=== PATIENT | male | born 1955 | race Caucasian/White ===

== ENCOUNTER 2022-07-26 10:09 | Outpatient (CLI) | payer MEDICARE ==
[2022-07-26 14:21] LABS: BASOPHILS % (AUTO) 0.9 %; EOSINOPHILS # (AUTO) 0.3 10^3/uL (0.0-0.7); EOSINOPHILS % (AUTO) 6.1 %; HCT - HEMATOCRIT 44.4 % (42.0-52.0); HGB - HEMOGLOBIN 14.8 g/dL (14.0-18.0); LYMPHOCYTES # (AUTO) 1.4 10^3/uL (1.5-3.5); LYMPHOCYTES % (AUTO) 31.8 %; MEAN CORPUSCULAR HEMOGLOBIN 32.6 pg (27.0-31.0); MEAN CORPUSCULAR HGB CONC 33.3 g/dL (32.0-36.0); MEAN CORPUSCULAR VOLUME 97.8 fL (80.0-94.0); MEAN PLATELET VOLUME 9.6 fL (7.4-11.4); MONOCYTES # (AUTO) 0.5 10^3/uL (0.0-1.0); MONOCYTES % (AUTO) 10.8 %; NEUTROPHILS # (AUTO) 2.3 10^3/uL (1.5-6.6); NEUTROPHILS % (AUTO) 50.4 %; PLT - PLATELET COUNT 145 10^3/uL (130-450); RED BLOOD COUNT 4.54 10^6/uL (4.70-6.10); RED CELL DISTRIBUTION WIDTH 13.1 % (12.0-15.0); WHITE BLOOD COUNT 4.5 x10^3/uL (4.8-10.8)
[2022-07-26 14:51] LABS: THYROID STIMULATING HORMONE 3.16 uIU/mL (0.34-5.60)
[2022-07-26 15:19] LABS: BUN - BLOOD UREA NITROGEN 22 mg/dL (6-20); CALCIUM 9.1 mg/dL (8.5-10.3); CARBON DIOXIDE - CO2 29 mmol/L (21-32); CHLORIDE 103 mmol/L (101-111); CHOL/HDL RATIO 2.7 (<5.0); CHOLESTEROL 229 mg/dL; CREATININE 1.4 mg/dL (0.6-1.2); GFR - MDRD 51 (>89); GLUCOSE 105 mg/dL (70-100); HDL CHOLESTEROL 86 mg/dL; LDL CHOLESTEROL,CALCULATED 134 mg/dL; LDL/HDL RATIO 1.6 (<3.6); POTASSIUM 4.3 mmol/L (3.5-5.0); SODIUM 138 mmol/L (135-145); TRIGLYCERIDES 45 mg/dL; VLDL CHOLESTEROL 9 mg/dL
[2022-07-26 20:09] LABS: ESTIMATED AVERAGE GLUCOSE 100 mg/dL (70-100); HEMOGLOBIN A1c% 5.1 % (4.27-6.07)
[2022-07-27 07:10] LABS: HCV AB <0.1 s/co ratio (0.0-0.9)
== END 2022-07-26 10:10 | disposition home or self-care (01) ==
LOC: LAB.S 10:09
PROVIDERS: ATTEND Internal Medicine
DX: I48.91 Unspecified atrial fibrillation (principal); R07.9 Chest pain, unspecified; E55.9 Vitamin D deficiency, unspecified; Z13.1 Encounter for screening for diabetes mellitus; Z13.220 Encounter for screening for lipoid disorders; Z11.59 Encounter for screening for other viral diseases; R06.02 Shortness of breath
CPT/HCPCS: 36415; 80048; 80061; 83036; 83721; 84443; 85025; 86803

== ENCOUNTER 2022-07-26 13:47 | Outpatient (CLI) | payer MEDICARE | END 2022-07-26 13:48 | disposition home or self-care (01) | LOC: RT 13:47 | PROVIDERS: ATTEND Internal Medicine Cardiovascular Disease | DX: R07.89 Other chest pain (principal) | CPT/HCPCS: 93005 ==

== ENCOUNTER 2022-10-16 11:18 | Outpatient (CLI) | payer MEDICARE ==
--- NOTE | 2022-10-16 14:23 | XRAY Report ---
PROCEDURE: Chest 2 View X-Ray INDICATIONS: SHORTNESS OF BREATH TECHNIQUE: 2 views of the chest were acquired. COMPARISON: None. FINDINGS: Surgical changes and devices: None. Lungs and pleura: Lung volumes are low. Moderate vasculature appears congested. Prominence of the pu lmonary interstitium and mild bibasilar pulmonary opacities present. Possible trace bilateral pleural effusions. No pneumothorax. Mediastinum: Cardiac silhouette is enlarged. Bones and chest wall: No suspicious bony lesions. Overlying soft tissues appear unremarkable. IMPRESSION: Findings compatible with mild fluid overload/CHF, appearance possibly accentuated by low lung volumes . Underlying infection difficult to exclude. Reviewed by: Lamonte Velez MD on 10/16/2022 2:22 PM PDT Approved by: Lamonte Velez MD on 10/16/2022 2:22 PM PDT Station ID: [id number]
== END 2022-10-16 11:19 | disposition home or self-care (01) ==
LOC: DI 11:18
PROVIDERS: ATTEND Internal Medicine
DX: R06.02 Shortness of breath (principal)

== ENCOUNTER 2022-11-01 16:13 | Outpatient (CLI) | payer MEDICARE ==
[2022-11-01] MEDS ORDERED: ALBUTEROL 1 PUFF INH STA (18:12)
== END 2022-11-01 16:14 | disposition home or self-care (01) ==
LOC: RT 16:13
PROVIDERS: ATTEND Internal Medicine
DX: R06.00 Dyspnea, unspecified (principal)
CPT/HCPCS: 94060

== ENCOUNTER 2022-11-24 07:56 | Outpatient (CLI) | payer MEDICARE | END 2022-11-24 07:57 | disposition EMS.NT | LOC: EMS 07:56 | DX: R04.0 Epistaxis (principal); Z79.02 Long term (current) use of antithrombotics/antiplatelets ==

== ENCOUNTER 2022-11-24 09:27 | Outpatient (CLI) | payer MEDICARE | END 2022-11-24 09:28 | disposition critical access hospital (66) | LOC: EMS 09:27 | DX: R04.0 Epistaxis (principal); Z79.02 Long term (current) use of antithrombotics/antiplatelets | CPT/HCPCS: A0425; A0429 ==

== ENCOUNTER 2022-11-24 10:00 | Emergency (ER) | payer MEDICARE ==
[2022-11-24] MEDS ORDERED: OXYMETAZOLINE HCL 100 SPRAYS BOTTLE NAS STA (10:19)
[2022-11-24] MEDS ORDERED: TRANEXAMIC ACID 1,000 MG/10 ML VIAL NAS STA (11:18)
--- NOTE | 2022-11-24 12:06 | ED Physician Documentation ---
PD HPI HEENT - Stated complaint Stated Complaint: NOSE BLEED - Chief complaint Chief Complaint: Heent - History obtained from History obtained from: Patient, Family - History of Present Illness Timing - onset: Enter time (0700), Today Timing - duration: Hours Timing - details: Abrupt onset, Still present Location: Nose Improves: Other (clamp) Worsens: Swalllowing Associated symptoms: No: Fever, Congestion, Rhinorrhea, Trismus, Unable to swal low, Swollen nodes, Facial swelling, Headache, Cough Similar symptoms before: Has not had sx before Recently seen: Not recently seen - Additional information Additional information: Previously well 67-year-old Juan Gonzalez awoke this morning at 0700 and developed a nosebleed to the left nares. He has had some bleeding bleeding through the right as well. He has been able to control the bleeding with direct pressure and comes to the emergency department by ambulance with a clamp in place. He did pull out a large clot from his nose this morning he continues to have blood dripping after removal of the clamp. He has not recently been ill. Review of Systems Constitutional: denies: Fever Eyes: denies: Decreased vision Ears: denies: Ear pain Nose: reports: Epistaxis. denies: Rhinorrhea / runny nose Throat: denies: Sore throat Respiratory: denies: Cough GI: denies: Vomiting, Diarrhea : denies: Dysuria PD PAST MEDICAL HISTORY - Past Medical History Past Medical History: Yes Cardiovascular: Hypertension : Other - Past Surgical History Past Surgical History: Yes Cardiovascular: Valve replacement, Other - Present Medications Home Medications: Ambulatory Orders Medication Instructions Recorded Confirmed Aspirin [Vazalore] 81 mg PO DAILY 11/24/22 11/24/22 Atorvastatin [Lipitor] 20 mg PO DAILY 11/24/22 11/24/22 Canagliflozin [Invokana] 100 mg PO DAILY 11/24/22 11/24/22 Clopidogrel [Plavix] 75 mg PO ONCE 11/24/22 11/24/22 Losartan Potassium 25 mg PO DAILY 11/24/22 11/24/22 Metoprolol Succinate [Toprol Xl] 25 mg PO ONCE 11/24/22 11/24/22 Spironolactone [Aldactone] 25 mg PO DAILY 11/24/22 11/24/22 Tamsulosin [Flomax] 1 cap PO DAILY 11/24/22 11/24/22 - Allergies Allergies/Adverse Reactions: Allergies Allergy/AdvReac Type Severity Reaction Status Date / Time No Known Drug Allergies Allergy Verified 11/24/22 10:09 - Social History Does the pt smoke?: No Smoking Status: Never smoker PD ED PE NORMAL - Vitals Vital signs reviewed: Yes (diastolic hypertension mild ) - General General: Alert and oriented X 3, No acute distress, Well developed/nourished - HEENT HEENT: Atraumatic, PERRL, EOMI, Other (blood from the left nares fills the nasal cavity. ) - Neck Neck: Supple, no meningeal sign, No bony TTP - Respiratory Respiratory: No respiratory distress - Derm Derm: Normal color, Warm and dry, No rash - Extremities Extremities: No deformity, No edema - Neuro Neuro: Alert and oriented X 3, crane hooker 2-12 intact, No motor deficit, No sensory deficit, Normal speech Eye Opening: Spontaneous Motor: Obeys Commands Verbal: Oriented GCS Score: 15 - Psych Psych: Normal mood, Normal affect Results - Vitals Vitals: Vital Signs - 24 hr 11/24/22 10:04 Temperature 36.7 C Heart Rate 80 Respiratory 20 Rate Blood Pressure 119/82 H O2 Saturation 100 Procedures - Epistaxis - Minor Site: Left, Anterior Preparation: Clots removed, Afrin, Clamp / pressure applied, Other (tranexemic acid) Treatment: Other (tranexemic acid, clamp, time. Bleeding resolved clot manually removed) Other: Observed - no bleeding, Pt tolerated well PD Medical Decision Making - ED course Complexity details: considered differential, d/w patient ED course: 67-year-old male with a anterior epistaxis to the left nares is administered oxymetazoline and clamped. He has improvement in his bleeding he does have a large clot. This is removed, there is some continued oozing. He is administered tranexamic acid to the nose with resolution of his bleeding. At the conclusion of treatment there is a small scuff edwin in the anterior septum consistent with a with where the patient was bleeding. This is readily amenable to clamping. Departure - Departure Disposition: 01 Home, Self Care Clinical Impression: Epistaxis Condition: Stable Instructions: ED Nosebleed Follow-Up: Ezequiel German MD [Primary Care Provider] - Comments: Juan today it looks like you have some bleeding from irritation to the anterior septum on the left side. This looks like it will be readily amenable to clamping if your bleeding restarts. My recommendation is to use another dose of the oxymetazoline on and placed the clamp. If you are unable to control bleeding we are here 24 hours a day.
[2022-11-24 12:19] VITALS: BP 109/73
== END 2022-11-24 12:30 | disposition home or self-care (01) ==
LOC: ED 10:00
DX: R04.0 Epistaxis (principal)
CPT/HCPCS: 99283; A9270

== ENCOUNTER 2023-01-04 10:21 | Outpatient (CLI) | payer MEDICARE ==
[2023-01-04 14:47] LABS: HCT - HEMATOCRIT 39.2 % (42.0-52.0); HGB - HEMOGLOBIN 12.9 g/dL (14.0-18.0); MEAN CORPUSCULAR HEMOGLOBIN 31.8 pg (27.0-31.0); MEAN CORPUSCULAR HGB CONC 32.9 g/dL (32.0-36.0); MEAN CORPUSCULAR VOLUME 96.6 fL (80.0-94.0); MEAN PLATELET VOLUME 9.3 fL (7.4-11.4); RED BLOOD COUNT 4.06 10^6/uL (4.70-6.10); RED CELL DISTRIBUTION WIDTH 13.1 % (12.0-15.0)
[2023-01-04 15:05] LABS: ALBUMIN 3.5 g/dL (3.2-5.5); ALBUMIN/GLOBULIN RATIO 1.1 (1.0-2.2); BILIRUBIN,TOTAL 0.5 mg/dL (0.2-1.0); CALCIUM 9.2 mg/dL (8.5-10.3); CREATININE 1.5 mg/dL (0.6-1.2); CRP HIGH SENSITIVITY 105.7 mg/L; POTASSIUM 5.4 mmol/L (3.5-5.0); TOTAL PROTEIN 6.8 g/dL (6.7-8.2)
[2023-01-04 15:21] LABS: THYROID STIMULATING HORMONE 1.64 uIU/mL (0.34-5.60)
== END 2023-01-04 10:22 | disposition home or self-care (01) ==
LOC: LAB.S 10:21
PROVIDERS: ATTEND Internal Medicine Cardiovascular Disease
DX: Z95.2 Presence of prosthetic heart valve (principal)
CPT/HCPCS: 36415; 80053; 84443; 85027; 85651; 86141

== ENCOUNTER 2023-01-11 11:09 | Outpatient (CLI) | payer MEDICARE ==
[2023-01-11 15:22] LABS: CALCIUM 8.7 mg/dL (8.5-10.3); CREATININE 1.4 mg/dL (0.6-1.2); POTASSIUM 4.7 mmol/L (3.5-5.0)
== END 2023-01-11 11:10 | disposition home or self-care (01) ==
LOC: LAB.S 11:09
PROVIDERS: ATTEND Internal Medicine Cardiovascular Disease
DX: Z95.2 Presence of prosthetic heart valve (principal)
CPT/HCPCS: 36415; 80048